=== PATIENT | female | born 1945 | race Two or more races ===

== ENCOUNTER 2020-07-15 21:07 | Emergency (ER) | payer OTHER, MEDICAID ==
[~2020-07-15] VITALS: Ht 162.6 cm; Wt 60.9 kg
[2020-07-15] MEDS ORDERED: METF-960 PO (21:24)
[2020-07-15] MEDS ORDERED: AMLO-257 PO (21:24)
[2020-07-15] MEDS ORDERED: INSLAN SQ (21:24)
[2020-07-15] MEDS ORDERED: LORA10TA7 PO (21:24)
[2020-07-15] MEDS ORDERED: LOSA-30 PO (21:24)
[2020-07-15 23:40] VITALS: BP 119/79
== END 2020-07-16 00:30 | disposition home or self-care (01) ==
LOC: EMS 21:08
DX: U07.1 COVID-19 (principal); I10 Essential (primary) hypertension; E11.9 Type 2 diabetes mellitus without complications; Z79.84 Long term (current) use of oral hypoglycemic drugs; Z79.899 Other long term (current) drug therapy
CPT/HCPCS: 82962; 87426; 99283; U0003